=== PATIENT | female | born 2005 | race Two or more races ===

== ENCOUNTER 2024-01-26 19:51 | Emergency (ER) | payer MEDICAID ==
[~2024-01-26] VITALS: Ht 152.4 cm; Wt 57.6 kg
[2024-01-26 20:04] VITALS: BP 129/90; PULSE 105; RESP 16; O2SAT 98
== END 2024-01-26 21:35 | disposition left against medical advice (07) ==
LOC: ER 19:51
DX: J35.1 Hypertrophy of tonsils (principal); Z53.21 Procedure and treatment not carried out due to patient leaving prior to being seen by health care provider

== ENCOUNTER 2025-06-19 09:59 | Emergency (ER) | payer MEDICAID ==
[~2025-06-19] VITALS: Ht 152.4 cm; Wt 63.4 kg
--- NOTE | 2025-06-19 10:57 | ED.PDOC ---
GI ASSESSMENT HPI Comments 20 y/o F, with PMHx of anxiety presents to the ED for CC of abdominal pain. Patient states, she has been experiencing intermittent epigastric abdominal pain that radiates to her chest x1day. Patient relays, further associated symptoms of nausea and vomiting. Patient denies hematemesis, diarrhea, shortness of breath, palpitations, or fever. Chief Complaint: Abdominal Pain Time Seen by MD: 10:30 Reviewed Notes: Nurses Notes, Medications, Allergies Allergies: Coded Allergies: NO KNOWN ALLERGIES (Unverified , 06/19/25) Home Meds Active Scripts Nitrofurantoin Monohydrate Mac (Macrobid) 100 Mg Cap, 100 MG PO BID for 5 Days, #10 CAP Prov:KYLEE HORTON MD 06/19/25 Pantoprazole Sodium Sesquihydr (Protonix) 40 Mg Tab, 40 MG PO DAILY for 5 Days, #5 TAB Prov:KYLEE HORTON MD 06/19/25 Information Source: Patient Mode of Arrival: Ambulatory Timing: Hours Duration: Since onset Prehospital treatment: None Vomitus: Watery Stool: Normal Severity: Moderate Recent: None Recent Hx of: None Pain Location: Epigastric Modifying Factors: Nothing Associated sign and symptoms: Nausea, Vomiting, Abdominal Pain ( ) Past Medical History PAST MEDICAL HISTORY: Anxiety Surgical History: Denies all surgeries [employer] History: Denies all [employer] Hx Family History Family History: Unknown Social History Smoker: Non-Smoker Alcohol: Denies ETOH Use Drugs: Denies Drug Use Lives In: Home Constitutional: denies: chills, diaphoresis, fatigue, fever, malaise, sweats, weakness, others EENTM: denies: blurred vision, double vision, ear bleeding, ear discharge, ear drainage, ear pain, ear ringing, eye pain, eye redness, hearing loss, mouth pain, mouth swelling, nasal discharge, nose bleeding, nose congestion, nose pain, photophobia, tearing, throat pain, throat swelling, voice changes, others Respiratory: denies: cough, hemoptysis, orthopnea, SOB at rest, shortness of breath, SOB with excertion, stridor, wheezing, others Cardiovascular: denies: chest pain, dizzy spells, diaphoresis, Dyspnea on exertion, edema, irregular heart beat, left arm pain, lightheadedness, palpitations, PND, syncope, others Gastrointestinal: reports: abdominal pain, nausea, vomiting; denies: abdomen distended, blood streaked bowels, constipated, diarrhea, dysphagia, difficulty swallowing, hematemesis, melena, poor appetite, poor fluid intake, rectal bleeding, rectal pain, others Genitourinary: denies: abnormal vagina bleeding, burning, dyspareunia, dysuria, flank pain, frequency, hematuria, incontinence, pain, , vagina discharge, urgency, others Neurological: denies: dizziness, fainting, headache, left sided numbness, left sided weakness, numbness, paresthesia, pre-existing deficit, right sided numbnes s, right sided weakness, seizure, speech problems, tingling, tremors, weakness, others Musculoskeletal: denies: back pain, gout, joint pain, joint swelling, muscle pain, muscle stiffness, neck pain, others Integumetry: denies: bruises, change in color, change in hair/nails, dryness, laceration, lesions, lumps, rash, wounds, others Allergic/Immunocompromised: denies: Difficulty Healing, Frequent Infections, Hives, Itching, others Hematologic/Lymphatic: denies: anemia, blood clots, easy bleeding, easy bruising, swollen glands, others Endocrine: denies: excessive hunger, excessive sweating, excessive thirst, excessive urination, flushing, intolerance to cold, intolerance to heat, unexplained weight gain, unexplained weight loss, others Psychiatric: denies: anxiety, bipolar disorder, depression, hopeless, panic disorder, schizophrenia, sleepless, suicidal, others All Other Systems: Reviewed and Negative Physical Exam General Appearance: Moderate Distress HEENT: Normal ENT Inspection, Pharynx Normal, TMs Normal Neck: Full Range of Motion, Non-Tender, Normal, Normal Inspection Respiratory: Chest Non-Tender, Lungs Clear, No Accessory Muscle Use, No Respiratory Distress, Normal Breath Sounds Cardiovascular: No Edema, No JVD, No Murmur, No Gallop, Normal Peripheral Pulses, Regular Rate/Rhythm Breast Exam: Deferred Gastrointestinal: No Organomegaly, Non Tender, No Pulsatile Mass, Normal Bowel Sounds, Soft Genitalia: Deferred Pelvic: Deferred Rectal: Deferred Extremities: No calf tenderness, Normal capillary refill, Normal inspection, Normal range of motion, Non-tender, No pedal edema Musculoskeletal : Apperance: Normal Neurologic: Alert, animal care attendant II-XII nml as Tested, No Motor Deficits, Normal Affect, Normal Mood, No Sensory Deficits Cerebellar Function: Normal Reflexes: Normal Skin: Dry, Normal Color, Warm Peripheral Pulses: 3+ Radial (R), 3+ Radial (L) Lymphatic: No Adenopathy Was a procedure done? Was a procedure done?: No GI differential Dx Differential Diagnosis: Constipation, Diverticular disease, Esophagitis, Gastritis/PUD, Gastroenteritis, Food Poisoning, Bacterial, Viral X-Ray, Labs, Meds, VS Vital Signs Date Time Temp Pulse Resp B/P (MAP) Pulse Ox O2 Delivery O2 Flow Rate FiO2 06/19/25 11:35 78 18 97 Room Air 06/19/25 11:35 98.5 78 18 122/88 (99) 97 98.5 06/19/25 10:01 98.1 87 16 133/84 97 98.1 Lab Test 06/19/25 11:31 Range/Units Urine Color Yellow Yellow Urine Clarity Turbid H Clear Urine pH 8.0 5.0-9.0 Urine Specific [place] 1.029 1.001-1.035 Urine Protein 1+ H Negative Urine Ketones Negative Negative Urine Blood Negative Negative /uL Urine Nitrite 2+ H Negative Urine Bilirubin Negative Negative Urine Urobilinogen Normal Negative mg/dL Urine Leukocyte Esterase 2+ Negative /uL Urine RBC 7 0 - 4 /hpf Urine Microscopic WBC 16 H 0-5 /HPF Urine Squamous Epithelial Cells Many <5 /hpf Urine Bacteria Many H None Seen /hpf Urine Mucus Few None Seen Urine Glucose Normal Normal mg/dL Current Medications Medications (Trade) Dose Ordered Sig/Les Route Start Time Stop Time Status Last Admin Belladonna Alkaloids/ Phenobarbital ( Elixir) 10 ml ONCE ONCE PO 06/19/25 10:45 06/19/25 10:46 DC 06/19/25 11:30 Al Hydrox/Mg Hydrox/Simethicone (Maalox Plus) 30 ml ONCE ONCE PO 06/19/25 10:45 06/19/25 10:46 DC 06/19/25 11:28 Lidocaine HCl (Xylocaine 2% Viscous) 15 ml ONCE ONCE PO 06/19/25 10:45 06/19/25 10:46 DC 06/19/25 11:29 Patient alert. Complaining of abdominal discomfort. Vitals stable. Answering questions. Abdomen is soft nontender. She is not in distress. Possible anxiety related. Possible gastritis. Was given GI cocktail. Was given prescription of Protonix. Explained to the patient. Was told to follow up with her primary care physician. Was told to come back if there is any problem. Time of 1ST Reevaluation: 11:00 Reevaluation 1ST: Unchanged Patient Education/Counseling: Diagnosis, Treatment, Need For Follow Up Family Education/Counseling: No Family Present SEPSIS Sepsis Screen Date sepsis recognized/suspect: Jun 19, 2025 Time Sepsis recognized/suspect: 1001 Recent Procedure: No On Antibiotic Therapy: No Respiratory Rate >20: No Heart Rate >90: No Temp<36 C (96.8 F) or >38.3 C: No SBP <90 or MAP <65 mmHG: No New Acute Mental Status Change: No Is the patient on CPAP, BIPAP,: No Vital Signs Date Time Temp Pulse Resp B/P (MAP) Pulse Ox O2 Delivery O2 Flow Rate FiO2 06/19/25 11:35 78 18 97 Room Air 06/19/25 11:35 98.5 78 18 122/88 (99) 97 98.5 06/19/25 10:01 98.1 87 16 133/84 97 98.1 Medications Medications Dose Ordered Sig/Les Route Start Time Stop Time Status Last Admin Dose Admin Al Hydrox/Mg Hydrox/Simethicone 30 ml ONCE ONCE PO 06/19/25 10:45 06/19/25 10:46 DC 06/19/25 11:28 Belladonna Alkaloids/ Phenobarbital 10 ml ONCE ONCE PO 06/19/25 10:45 06/19/25 10:46 DC 06/19/25 11:30 Lidocaine HCl 15 ml ONCE ONCE PO 06/19/25 10:45 06/19/25 10:46 DC 06/19/25 11:29 Departure 1 Departure Time of Disposition: 11:26 Impression: Primary Impression: Gastritis Qualified Codes: K29.00 - Acute gastritis without bleeding Additional Impression: Urinary tract infection Qualified Codes: N30.01 - Acute cystitis with hematuria Disposition: HOME / SELF CARE / HOMELESS Condition: Good e-Prescriptions Nitrofurantoin Monohydrate Mac (Macrobid) 100 Mg Cap 100 MG PO BID for 5 Days, #10 CAP Prov: KYLEE HORTON MD 06/19/25 Pantoprazole Sodium Sesquihydr (Protonix) 40 Mg Tab 40 MG PO DAILY for 5 Days, #5 TAB Prov: KYLEE HORTON MD 06/19/25 Discharged With: Self Critical Care Note Critical Care Time?: No Stability Stability form required: No Heart Score Heart Score: Heart Score Response (Comments) Value History N/A 0 EKG N/A 0 Age N/A 0 Risk Factors N/A 0 Troponin N/A 0 Total 0 I personally scribed for KYLEE HORTON MD ([email or web address]) on 06/19/25 at 10:57. Electronically submitted by Lolita Cornelius ([email or web address]). KYLEE HORTON MD Jun 19, 2025 10:57
[2025-06-19] MEDS ORDERED: PANT40TA2 PO (11:27)
[2025-06-19] MEDS: MAALOX PLUS or MAALOX 30 ML PO ONE (11:28)
[2025-06-19] MEDS: LIDOCAINE VISCOUS 2% 15ML UD PO ONE (11:29)
[2025-06-19] MEDS: DONNATAL 5ml ORAL Elix (BELLADONNA ALK-PHENOBARB) PO ONE (11:30)
[2025-06-19 11:35] VITALS: BP 122/88; PULSE 78; RESP 18; TEMP 98.5; O2SAT 97
[2025-06-19 11:50] LABS: Urine Protein, UAD 1+ (Negative)
[2025-06-19] MEDS ORDERED: NITR-87 PO (11:57)
== END 2025-06-19 12:02 | disposition home or self-care (01) ==
LOC: ER 09:59
DX: N39.0 Urinary tract infection, site not specified (principal); K29.70 Gastritis, unspecified, without bleeding; F41.9 Anxiety disorder, unspecified; Z79.899 Other long term (current) drug therapy
CPT/HCPCS: 81001